=== PATIENT | male | born 1980 | race Caucasian/White ===

== ENCOUNTER 2016-11-03 02:46 | Emergency (ER) | payer OTHER ==
--- NOTE | 2016-11-03 19:33 | ER ---
ADMIT: 11/03/2016 RM/LOC: ER [facility] MR#: [id number] [id number] [place] [address] Emergency Room Report SEX: M AGE: 36 : 1980 DATE: 11/03/2016 HISTORY OF PRESENT ILLNESS: The patient is a 36-year-old male with a past medical history of anxiety disorder who came to the ER with chief complaint of anxiety and anterior medial chest pain for 30 minutes, which happened after waking up from sleep. The patient also complains of palpitations. PHYSICAL EXAMINATION: GENERAL: In the ER, the patient was in moderate distress. The patient was put on monitor, received aspirin p.o. EKG did not show any ST or T changes or Q-waves or arrhythmia. Cardiac enzymes are negative too. HEAD AND NECK: Normal. CHEST: Clear. Bilateral normal. HEART: Sounds without any gallops or murmurs. ABDOMEN: Soft. The rest of the physical exam is negative and noncontributory. The patient received Ativan 1 mg IV. The patient was re-examined and states that the chest pain has resolved and anxiety decreased substantially. DIAGNOSES: 1. Atypical chest pain. 2. Anxiety. The patient was discharged to home. Return precautions, and follow up with the primary doctor as needed. Kris Addison MD/ eric JOB #: [id number] CC: Kris Addison MD, Attending Physician Viet Thomason MD, Family Physician
== END 2016-11-03 04:42 | disposition home or self-care (01) ==
LOC: ER 02:46
DX: R07.89 Other chest pain (principal); F41.9 Anxiety disorder, unspecified